=== PATIENT | female | born 1955 ===

== ENCOUNTER 2017-01-11 09:53 | Outpatient (CLI) | payer OTHER ==
--- NOTE | 2017-01-12 11:34 | Nuclear Medicine Report ---
Thyroid uptake and scan: Thyrotoxicosis. Following ingestion of I-123 capsule there is a followup uptake of 13.8% and the 24-hour uptake of 29.8%. Imaging of the thyroid at 4 hours demonstrates a normal distribution of radionuclide. The thyroid lobes have a normal contours and sizes. Impressions: Normal uptake and thyroid scan.
== END 2017-01-11 09:54 | disposition home or self-care (01) ==
LOC: NM 09:53
DX: E05.90 Thyrotoxicosis, unspecified without thyrotoxic crisis or storm (principal)
CPT/HCPCS: 78012; A9516